=== PATIENT | male | born 1990 | race Caucasian/White ===

== ENCOUNTER 2017-07-15 10:40 | Emergency (ER) | payer MEDICAID, OTHER ==
[~2017-07-15] VITALS: Ht 172.7 cm; Wt 60.0 kg
[2017-07-15] MEDS ORDERED: SODIUM CHLORIDE FLUSH 10ML SYR IVF ONE (11:30)
[2017-07-15] MEDS ORDERED: SODIUM CHLORIDE 0.9% 1,000 ML IV ONE (11:30)
[2017-07-15] MEDS ORDERED: KETOROLAC 30 MG/1 ML IVPush STA (11:38)
[2017-07-15 11:48] LABS: HEMATOCRIT 45.2 % (39.2-51.8); HEMOGLOBIN 15.4 g/dL (13.7-18.0); WHITE BLOOD COUNT 10.6 x10^3/uL (3.4-10)
[2017-07-15] MEDS ORDERED: KETOROLAC 30 MG/1 ML ONE (11:48)
[2017-07-15 11:55] VITALS: BP 105/70
[2017-07-15] MEDS ORDERED: SODIUM CHLORIDE 0.9% 1,000ML IVBOLUS ONE (12:00)
[2017-07-15 12:05] LABS: RAPID INFLUENZA A Negative (Negative); RAPID INFLUENZA B Negative (Negative)
[2017-07-15 12:09] LABS: ASPARTATE AMINO TRANSFERASE 15 U/L (15-37); BLOOD UREA NITROGEN 14 mg/dL (7-18)
== END 2017-07-15 13:52 | disposition home or self-care (01) ==
LOC: ED 13:49
DX: S39.012A Strain of muscle, fascia and tendon of lower back, initial encounter (principal); X58.XXXA Exposure to other specified factors, initial encounter; Y93.89 Activity, other specified; Y92.89 Other specified places as the place of occurrence of the external cause; Y99.8 Other external cause status
CPT/HCPCS: 36415; 80053; 81003; 83690; 85025; 87400; 96361; 96374; 99284; J1885; J7030